=== PATIENT | female | born 1945 | race Caucasian/White ===

== ENCOUNTER → 2025-01-19 11:14 | Outpatient (REF) | payer OTHER, SELFPAY | LOC: HWRAD 11:14 | PROVIDERS: ATTENDING PHYSICIAN Physician Assistant; FAMILY PHYSICIAN Internal Medicine | DX: J34.89 Other specified disorders of nose and nasal sinuses (principal) | CPT/HCPCS: 70486 ==

== ENCOUNTER 2025-03-28 20:01 | Emergency (ER) | payer OTHER, SELFPAY ==
[2025-03-28 20:03] VITALS: BP 146/91
[2025-03-28 20:35] VITALS: BMI 25.1
[2025-03-28 20:38] VITALS: BP 136/88
[2025-03-28 21:00] VITALS: BP 132/74
[2025-03-28 22:00] VITALS: BP 134/88
[2025-03-28 23:00] VITALS: BP 141/103
--- NOTE | 2025-03-29 01:32 | ED.GENMED ---
History of Present Illness
General
Chief Complaint: Numbness
Source: patient
Time Seen by Provider: 03/28/25 20:27
History of Present Illness
History of Present Illness:
Note:
CHIEF COMPLAINT(S)
Weakness and twitching in the legs following an injection in the neck.
HISTORY OF PRESENT ILLNESS
The patient is an 79-year-old female who presented with weakness and twitching in both legs that started after receiving an injection in the neck earlier in the day. The injection was administered around 1:[address] Javier upon the recommendation
of Dr. Patricio, following an MRI that suggested her migraine headaches might originate from a neck issue. Shortly after the injection, the patient reported that the sensation seemed to spread to her legs, and she experienced involuntary twitching,
primarily in the left leg but also involving the right leg. She described a progressive numbness rising to her waist, an inability to urinate, and substantial weakness in both legs, rendering her unable to get up from the floor. The right leg
improved slightly, but the left leg remains significantly weak. The patient attempted to reach for help, taking two hours to inch to the phone. Upon examination, she confirmed normal strength in her arms but noted a persistent inability to urinate
and a recent history of mild incontinence.
PHYSICAL EXAM
General: Alert, no acute distress.
Skin: Warm, dry.
Head: Normocephalic, atraumatic.
Neck: Supple, trachea midline.
Eyes, Ears, Nose, Mouth, and Throat: Oral mucosa moist.
Cardiovascular: Heart regular without murmur, normal peripheral perfusion, no edema.
Respiratory: Respirations are non-labored.
Gastrointestinal: Abdomen nondistended.
Back: Normal range of motion, normal alignment.
Musculoskeletal: Mild weakness noted in the left lower extremity, able to hold against gravity but drift toward the bed. Normal strength in the right lower extremity.
Neurological: Cranial nerves intact bilaterally, normal sensory exam. No focal neurological deficit observed.
Psychiatric: Cooperative, appropriate mood and affect.
PROBLEM LIST
Acute:
- Bilateral leg weakness with predominate left-sided presentation.
- Urinary retention post injection.
PLAN
- Consult with Dr. Javier or his partner to review the injection details and potential for spinal anesthesia impact.
- Monitor neurological status, focusing on resolution of symptoms and ability to urinate.
- Consider further imaging if symptoms persist or worsen.
- Reassure patient regarding the low likelihood of stroke based on presentation and symptoms.
DIFFERENTIAL DIAGNOSIS
The Differential Diagnosis includes, in no particular order and is not limited to:
- Spinal anesthesia effect
- Peripheral neuropathy
- Cauda equina syndrome
- Transverse myelitis
- Stroke
- Guillain-Napier� syndrome
- Multiple sclerosis
- Lumbar disc herniation
- Myasthenia gravis
- Conversion disorder
Disposition:
SUMMARY OF ENCOUNTER
An 79-year-old female presented to the emergency department with complaints of bilateral leg weakness and twitching, which developed after receiving an injection in her upper thoracic region earlier in the day. On reassessment, her symptoms had
resolved, and she was able to ambulate and urinate without difficulty. The rapid resolution of symptoms suggested a reaction to the injection rather than a cerebrovascular accident (CVA). The patient is in improved condition and expressed a desire
to return home. There is no clinical concern for a hematoma or abscess in the upper thoracic spine.
DISPOSITION
Discharge.
ASSESSMENT
Resolved bilateral leg weakness and twitching, likely due to a reaction to an injection in the upper thoracic region. Low suspicion for cerebrovascular accident.
REASSESSMENT
Patient was reassessed, found to be ambulatory, and able to urinate without difficulty, with no persistent symptoms.
PLAN
Discharge the patient with instructions to follow up with her physician the next day. Advise the patient to return to the emergency department for any progressive symptoms.
FOLLOW-UP INSTRUCTIONS
The patient should follow up with her physician tomorrow. She should return to the emergency department if she experiences any progressive symptoms.
MEDICAL DECISION MAKING
-Complexity of Data Reviewed: Acute condition addressed - resolved bilateral leg weakness and twitching post-injection.
-Data:
Category 2
My independent interpretation of the patients symptoms led to the conclusion that they were most likely a transient reaction to the injection.
-Risk: Consideration of Admission/Observation: Escalation of care including admission/observation was considered given the complexity and risk of the patients presenting complaint, exam findings, and/or underlying comorbidities. However, ultimately
I felt the patient was safe for outpatient management with close follow-up. Reasoning: Work-up reassuring, does not reveal any acute life/organ threatening processes, patients symptoms well controlled upon reevaluation, reexamination is reassuring,
vitals are stable, patient agreeable with discharge, reliable for follow-up.
DIAGNOSIS
Transient leg weakness and twitching post-injection, likely due to reaction to injection (ICD-10: T88.7).
Past History
Past History
ED Past Medical History: GERD (Hiatal hernia, esophageal stricture), HTN and Hypothyroidism
ED Past Surgical History: Appendectomy, Cholecystectomy, Orthopedic and Tonsilectomy
Social History
Tobacco: Non-smoker
Alcohol: None
Drug: None
Personal:
Living: with family
Employment: Retired
Family History
Family History: Other (Noncontributory)
Phy Exam
Physical Exam
Physical Exam:
.
Course
Vital Signs
Initial and Last Documented VS:
Initial Vital Signs
Temp Pulse Resp BP Pulse Ox
98.1 F 96 16 146/91 98
03/28/25 20:03 03/28/25 20:03 03/28/25 20:03 03/28/25 20:03 03/28/25 20:03
Last Documented Vital Signs
Temp Pulse Resp BP Pulse Ox
98.1 F 71 18 146/91 97
03/28/25 20:03 03/28/25 20:38 03/28/25 20:38 03/28/25 20:03 03/28/25 20:38
*Pulse Oximetry
SaO2: 97
Oxygen Mode of Delivery: Room air
Patient hypoxic: no
*Critical Care Note
Total Time (30-74mins, 75-104mins- exclusive of procedures): Not Applicable
ED Attending Note
-
Portions of this chart may have been created with voice recognition software.� Occasional wrong word or��sound alike� substitutions may have occurred due to the inherent limitations of voice recognition software.
Discharge Plan
Departure
Patient Disposition: Home (Routine Discharge)
Date of Disposition: 03/29/25
Time of Disposition: 01:32
Patient with high blood pressure during this ER visit?: Yes
Discharge Problem:
Bilateral leg weakness
Instructions: BLOOD PRESSURE, Paresthesia (DC)
Prescriptions:
No Action
doxycycline monohydrate 100 mg capsule
100 mg PO BID Qty: 20 0RF
fluconazole [Diflucan] 150 mg tablet
150 mg PO ONCE Qty: 1 0RF
Rx Instructions:
to be taken 10/26/21
Referrals:
Emanuel Patricio MD [Family Provider, Internal Medicine]
Activity Restrictions/Additional Instructions:
Reaction from injection
Please see your doctor in follow-up in the next 24 hours. Return immediately for worsening symptoms, weakness of any kind, numbness, tingling, difficulty urinating or any other concerns.
Interventions
Interventions:
*General Assessment Last Done: 03/28/25 20:03
*Neglect/Abuse Screening Last Done: 03/28/25 20:03
*ED COVID-19 Vaccine History Last Done: 03/28/25 20:35
*ED Influenza Vaccine History Last Done: 03/28/25 20:[address]
[facility] Fall Risk Assessment Tool Last Done: 03/28/25 20:38
*Risk Screen - Suicide (C-SSRS) Last Done: 03/28/25 20:03
ED- Neurological Assessment Last Done: 03/28/25 20:36
Discharge Date and Time
Print Language: TURKISH
== END 2025-03-29 02:41 | disposition home or self-care (01) ==
LOC: EMR 20:01
PROVIDERS: EMERGENCY PHYSICIAN Emergency Medicine; FAMILY PHYSICIAN Internal Medicine
DX: R53.1 Weakness (principal); I10 Essential (primary) hypertension; E03.9 Hypothyroidism, unspecified; K21.9 Gastro-esophageal reflux disease without esophagitis; K44.9 Diaphragmatic hernia without obstruction or gangrene; G43.909 Migraine, unspecified, not intractable, without status migrainosus
CPT/HCPCS: 99283